=== PATIENT | male | born 1995 | race Caucasian/White ===

== ENCOUNTER 2016-07-13 15:36 | Emergency (ER) | payer OTHER ==
[2016-07-13 15:50] VITALS: BP 125/67; PULSE 70; TEMP 98.5; BMI 18.1
[2016-07-13] MEDS ORDERED: IBUPROFEN 400 MG TABLET (FP) PO ONE ×2 (16:51→16:54)
--- NOTE | 2016-07-13 16:59 | PDOC ---
History of Present Illness - General Chief Complaint: Injury Stated Complaint: RT HAND PAIN Time Seen by Provider: 07/13/16 16:02 - History of Present Illness Initial Comments: 07/13/16 16:54 CHIEF COMPLAINT: Right hand pain HISTORY OF PRESENT ILLNESS: 31-year-old male with no past medical history presents to ED with right hand pain status post fall yesterday. Patient states that he fell late last night when he was walking after tripping. He still onto the ground outside and scraped his hand. Patient states that today his hand looks a little bit more swollen and he wanted to make sure there is nothing broken. Patient denies any loss of consciousness, injury to the head, back, or any other part of body. Patient denies fever chills nausea vomiting diarrhea. No recent travel or sick contacts. PAST MEDICAL HISTORY: Denies past medical history FAMILY HISTORY: Denies SOCIAL HISTORY: Denies tobacco, alcohol, illicit drug use. SURGICAL HISTORY: Denies ALLERGIES: No known drug allergies REVIEW OF SYSTEMS General/Constitutional: Denies fever or chills. Denies weakness, weight change. Musculoskeletal: Pain and swelling to right hand. Denies joint or muscle swelling or pain. Denies neck or back pain. Skin and breasts: Denies rash or easy bruising. PHYSICAL EXAM General Appearance: Well-appearing, appropriately dressed. Respiratory/Chest: Lungs CTAB. Cardiovascular: RRR. S1, S2. Musculoskeletal/Extremities: Multiple superficial abrasions to dorsal aspect of right hand. Minimal swelling to aspect of third MCP. R hand neurovascularly intact, pulses 2+. Full range of motion to all fingers and wrist of right hand. FROM of all other extremities, normal capillary refill. Integumentary: Appropriate color, dry, warm. No cyanosis, erythema, jaundice or rash Neurologic: program facilitator II-XII intact. Fully oriented, alert. Appropriate mood/affect. Motor strength 5/5. No appreciable EOM palsy, facial droop or sensory deficit. Past History - Past Medical History Allergies/Adverse Reactions: Allergies Allergy/AdvReac Type Severity Reaction Status Date / Time No Known Allergies Allergy Verified 07/13/16 15:47 Home Medications: Ambulatory Orders Ibuprofen 800 mg PO TID PRN #21 tablet 07/13/16 Other medical history: DENIES. - Psycho/Social/Smoking Cessation Hx Suicidal Ideation: No Smoking History: Never smoked *Physical Exam - Vital Signs Last Vital Signs Temp Pulse Resp BP Pulse Ox 98.5 F 70 19 125/67 100 07/13/16 15:47 07/13/16 15:47 07/13/16 15:47 07/13/16 15:47 07/13/16 15:47 ED Treatment Course - RADIOLOGY Radiology Studies Ordered: Category Date Time Status HAND- RIGHT [RAD] Stat Radiology 07/13/16 16:46 Ordered Medical Decision Making - Medical Decision Making 07/13/16 16:57 21-year-old male with no past medical history presents to ED with right hand pain status post fall yesterday. -Ibuprofen 800 mg po -Right hand x-ray X-ray results negative for fracture, or dislocation, Ibuprofen 800 mg po rx sent to pharmacy Advised patient to take medication as prescribed and follow up with primary care provider next week. Advised patient of signs and symptoms for return to ER ; patient verbalized understanding and agrees to plan *DC/Admit/Observation/Transfer Diagnosis at time of Disposition: Hand injury Qualifiers: Encounter type: initial encounter Laterality: right Qualified Code(s): S69.91XA - Unspecified injury of right wrist, hand and finger(s), initial encounter - Discharge Dispostion Disposition: HOME Condition at time of disposition: Stable Admit: No - Prescriptions Prescriptions: Ibuprofen 800 mg PO TID PRN #21 tablet PRN Reason: Pain - Patient Instructions Printed Discharge Instructions: DI for Hand Injury, How To Perform RICE (Rest, Ice, Compress, Elevate) Additional Instructions: Please take medication as prescribed and follow up with your primary care doctor. Please wash your hand with mild soap and water to prevent infection. If your pain persists past 5 days, please follow up with orthopedics (a referral has been provided). If you experience increased swelling, redness, streaking, fever, chills, nausea, vomiting, diarrhea or any new or worsening symptoms, please return to the ER.
== END 2016-07-13 18:00 | disposition home or self-care (01) ==
LOC: JERFT 15:36
DX: S69.91XA Unspecified injury of right wrist, hand and finger(s), initial encounter (principal); W18.31XA Fall on same level due to stepping on an object, initial encounter; W18.39XA Other fall on same level, initial encounter; Y92.410 Unspecified street and highway as the place of occurrence of the external cause
CPT/HCPCS: 73130-TC-RT; 99281-25

== ENCOUNTER 2016-10-20 13:39 | Day surgery (SDC) | payer OTHER ==
[~2016-10-20 13:39] MED LIST: BUPIVACAINE HCL/PF (5 MG/ML) 30 ML VIAL IJ ONE
--- NOTE | 2016-10-20 13:50 | PDOC ---
History of Present Illness - General History Source: Patient Exam Limitations: No Limitations - History of Present Illness Initial Comments: 10/20/16 14:19 The patient is a 21 year old male with no significant past medical history, presenting to the Emergency Department with abdominal pain that started this morning. He describes the pain as at his left upper quadrant, and left lower quadrant pain, radiating to his back and wrapping around his abdomen. He admits that standing straight exacerbates the pain, and he needs to lay on his side to alleviate the pain. He admits that the pain has worsened from this morning, 8/ 10 in intensity. He admits that he ate breakfast this morning with no problem, though the pain started before breakfast. He also admits to chills but denies fever, and admits to nausea. He denies previously having similar symptoms. He has not taken any medication for the pain. The patient denies vomiting, or diarrhea. Patient denies fever, or cough. Patient denies constipation, or melena. Patient denies urinary frequency, or urgency. Patient denies sick contact. <Queta Hooks - Last Filed: 10/20/16 17:21> - General History Source: Patient Exam Limitations: No Limitations <Zoe Diallo - Last Filed: 10/22/16 07:42> - General Chief Complaint: Pain, Acute Stated Complaint: ABD PAIN Time Seen by Provider: 10/20/16 13:49 Past History <Queta Hooks - Last Filed: 10/20/16 17:21> - Past Medical History Other medical history: DENIES. - Psycho/Social/Smoking Cessation Hx Anxiety: No Suicidal Ideation: No Smoking History: Never smoked Hx Alcohol Use: No Drug/Substance Use Hx: No Substance Use Type: None <Zoe Diallo - Last Filed: 10/22/16 07:42> - Past Medical History Allergies/Adverse Reactions: Allergies Allergy/AdvReac Type Severity Reaction Status Date / Time No Known Allergies Allergy Verified 10/20/16 13:44 Home Medications: Ambulatory Orders Oxycodone HCl [Roxicodone -] 5 mg PO Q4H PRN #20 tablet MDD 6 tablets 10/21/16 Review of Systems - Review of Systems Able to Perform ROS?: Yes Comments:: 10/20/16 14:19 GENERAL/CONSTITUTIONAL: No: fever, chills, weakness, loss of appetite. HEAD, EYES, EARS, NOSE AND THROAT: No: change in vision, ear pain, discharge, sore throat, throat swelling. CARDIOVASCULAR: No: chest pain, lightheadedness, palpitations, syncope RESPIRATORY: No: cough, shortness of breath, wheezing, hemoptysis, stridor. GASTROINTESTINAL: No: vomiting, diarrhea, rectal bleeding, constipation. Present: + LUQ pain radiating to back, + LLQ pain, + nausea GENITOURINARY: No: dysuria, hematuria, frequency, urgency, flank pain. MUSCULOSKELETAL: No: neck pain, joint pain, muscle swelling or pain SKIN: No: lesions, pallor, rash or easy bruising. NEUROLOGIC: No: headache, vertigo, paresthesias, weakness ENDOCRINE: No: unexplained weight gain or loss HEMATOLOGIC/LYMPHATIC: No: anemia, easy bleeding, swelling nodes <Queta Hooks - Last Filed: 10/20/16 17:21> *Physical Exam - Vital Signs Last Vital Signs Temp Pulse Resp BP Pulse Ox 98.3 F 69 18 135/78 100 10/20/16 13:43 10/20/16 13:43 10/20/16 13:43 10/20/16 13:43 10/20/16 13:43 - Physical Exam Comments: 10/20/16 14:21 GENERAL: The patient appears in pain, in position. HEAD: Normal with no signs of trauma. EYES: PERRLA, EOMI, sclera anicteric, conjunctiva clear. ENT: Ears normal, nares patent, oropharynx clear without exudates. Moist mucous membranes. NECK: Normal range of motion, supple without lymphadenopathy, JVD, or masses. LUNGS: Breath sounds equal, clear to auscultation bilaterally. No wheezes, and no crackles. HEART: Regular rate and rhythm, normal S1 and S2 without murmur, rub or gallop. ABDOMEN: Tenderness to palpation at the LUQ and LLQ, voluntary guarding. Normoactive bowel sounds. No rebound. EXTREMITIES: Normal range of motion, no edema. No clubbing or cyanosis. No erythema, or tenderness. NEUROLOGICAL: Cranial nerves II through XII grossly intact. Normal speech. No focal neurological deficits. MUSCULOSKELETAL: Back nontender to palpation, no CVA tenderness SKIN: Warm, Dry, normal turgor, no rashes or lesions noted. <Queta Hooks - Last Filed: 10/20/16 17:21> - Vital Signs Last Vital Signs Temp Pulse Resp BP Pulse Ox 98.3 F 69 18 135/78 100 10/20/16 13:43 10/20/16 13:43 10/20/16 13:43 10/20/16 13:43 10/20/16 13:43 <Zoe Diallo - Last Filed: 10/22/16 07:42> ED Treatment Course - LABORATORY CBC & Chemistry Diagram: 10/20/16 14:18 10/20/16 14:18 - RADIOLOGY Radiograph Interpretation: 10/20/16 16:[address] As reviewed by Dr. Nola Bolton IMPRESSION: Findings consistent with early acute appendicitis. No extraluminal air or abscess formation is identified. <Queta Hooks - Last Filed: 10/20/16 17:21> - LABORATORY CBC & Chemistry Diagram: 10/21/16 07:25 10/20/16 14:18 <Zoe Diallo - Last Filed: 10/22/16 07:42> Medical Decision Making - Medical Decision Making 10/20/16 16:59 Dr. Staton was called at his office at [phone] at 4:50. A message was left on his voicemail, awaiting call back. Dr. Staton was called at his office at [phone] at 4:53. A message was left on his voicemail, awaiting call back. 10/20/16 17:21 Dr. Staton was called at his cell at [phone] at 5:21. Dr. Staton spoke to Dr. Diallo about the patient's care. <Queta Hooks - Last Filed: 10/20/16 17:21> - Medical Decision Making 10/20/16 13:50 A portion of this note was documented by scribe services under my direction. I have reviewed the details of the note, within reason, and agree with the documentation with the following case summary and management plan written by me. Nursing documentation reviewed and incorporated into medical decision making This is an otherwise healthy 21 yo M presenting to the Er with a complaint of abdominal pain Pt symptoms began this morning No fevers (+) chills Pt last ate breakfast He presents to the ER in the position reporting left sided abdominal pain No diarrhea (+) nausea, no vomiting No recent travel No changes in diet On examination: Pt in the position, pain worsens with extension of legs No abdominal distention Pt is tender through out the abdomen, worse in left side, mild right lower abd tenderness Will do labs, will do CT Will give Morphine Will give Zofran Will give pepcid 10/20/16 15:18 Laboratory Tests 10/20/16 10/20/16 14:18 14:18 WBC 18.5 H Hgb 15.7 Hct 46.7 Plt Count 204 Neutrophils % 85.9 H Lymphocytes % 8.9 Sodium 140 Potassium 3.7 Chloride 100 Carbon Dioxide 25 Anion Gap 15 BUN 17 Creatinine 0.9 Random Glucose 99 Total Amylase [address]: Early Acute Appendicitis 10/20/16 17:[address] Staton Will admit to hospitalist OR at 6:30pm <Zoe Diallo - Last Filed: 10/22/16 07:42> *DC/Admit/Observation/Transfer - Attestations Scribe Attestion: 10/20/16 14:21 Documentation prepared by Queta Hooks, acting as phlebotomist medical lab assistant for Zoe Diallo MD/DO. <Queta Hooks - Last Filed: 10/20/16 17:21> - Discharge Dispostion Admit: Yes <Zoe Diallo - Last Filed: 10/22/16 07:42> Diagnosis at time of Disposition: Acute appendicitis Qualifiers: Acute appendicitis type: unspecified acute appendicitis type Qualified Code(s) : K35.80 - Unspecified acute appendicitis - Discharge Dispostion Disposition: HOME Condition at time of disposition: Improved - Prescriptions - Referrals
[2016-10-20] MEDS ORDERED: FAMOTIDINE 20 MG/50 ML IVPB 50 ML IVPB ONE ×2 (14:05→14:15)
[2016-10-20] MEDS ORDERED: ONDANSETRON 4 MG/2 ML VIAL IVPUSH ONE (14:05)
[2016-10-20] MEDS ORDERED: SODIUM CHLORIDE 1,000 ML IV STA (14:05)
[2016-10-20] MEDS ORDERED: ONDANSETRON 4 MG/2 ML VIAL ONE ×2 (14:15→20:09)
[2016-10-20] MEDS ORDERED: morphine CARPU-JECT 4 MG/1 ML DISP.SYRIN IVPUSH ONE (14:16)
[2016-10-20 14:38] LABS: BASOPHIL 0.1 % (0-2.0); EOSINOPHIL 0.3 % (0-4.5); MCH 28.6 pg (25.7-33.7); MCHC 33.6 g/dl (32.0-35.9); MEAN CELL VOLUME 85.3 fl (80-96); MEAN PLT VOLUME 9.1 fl (7.5-11.1); NEUTROPHILS 85.9 % (42.8-82.8); PLATELET COUNT 204 K/MM3 (134-434); RDW 12.8 % (11.9-15.9); WHITE BLOOD COUNT 18.5 K/mm3 (4.0-10.0)
[2016-10-20] MEDS ORDERED: morphine CARPU-JECT 4 MG/1 ML DISP.SYRIN ONE (14:39)
[2016-10-20 15:05] LABS: ALBUMIN 4.5 g/dl (3.4-5.0); AMYLASE 47 U/L (25-115); ANION GAP 15 (8-16); BILIRUBIN,TOTAL 0.7 mg/dL (0.2-1.0); CALCIUM 9.2 mg/dL (8.5-10.1); CO2 25 mmol/L (21-32); COCKROFT - GAULT 106.46; CREATININE 0.9 mg/dL (0.7-1.3); GLUCOSE,RANDOM 99 mg/dL (74-106); SGOT/AST 16 U/L (15-37); SGPT/ALT 21 U/L (12-78); TOT PROT 7.8 g/dl (6.4-8.2)
[2016-10-20 15:06] LABS: ALK PHOS 76 U/L (45-117)
[2016-10-20 16:09] LABS: URINE APPEARANCE CLOUDY; URINE BILIRUBIN NEGATIVE (NEGATIVE); URINE BLOOD NEGATIVE (NEGATIVE); URINE COLOR STRAW; URINE GLUCOSE (UA) NEGATIVE (NEGATIVE); URINE KETONE 1+ (NEGATIVE); URINE LEUK ESTERASE NEGATIVE (NEGATIVE); URINE NITRITE NEGATIVE (NEGATIVE); URINE PROTEIN NEGATIVE (NEGATIVE); URINE UROBILINOGEN NEGATIVE E.U./dl (0.2-1.0)
[2016-10-20] MEDS ORDERED: PIPERACILLIN/TAZOB 3.375 GM/50 ML PRE-DOCKED IVPB ONE (16:48)
[2016-10-20] MEDS ORDERED: PIPERACILLIN/TAZOB 3.375 GM 50 ML IVPB ONE (16:52)
--- NOTE | 2016-10-20 17:59 | HP ---
CHIEF COMPLAINT: This is a 21-year-old man who presents with abdominal pain times one day. PCP: None HISTORY OF PRESENT ILLNESS: Patient is a healthy 21-year-old man who presents complaining of onset this morning of initially left-sided and then diffuse abdominal discomfort. As the day progressed, the pain has now shifted to the right mid abdomen. There is nausea but no vomiting. He felt hot but did not have a fever. He is urinating normally. There is no change in his bowel movements. ER course was notable for: (1) CT was performed demonstrating thickening of the appendix up to 12 mm, with periappendiceal inflammation consistent with early appendicitis (2) patient was treated with IV Zosyn times one dose (3) patient was given 1 L of normal saline along with Zofran for nausea Recent Travel: Denies PAST MEDICAL HISTORY: No significant past medical history. No diabetes, no asthma, no hypertension. PAST SURGICAL HISTORY: None Social History: Smoking: Nonsmoker Alcohol: Drinks alcohol at parties or weddings, approximately once per month Drugs: No recreational drug use Family History: Negative Allergies No Known Allergies Allergy (Verified 10/20/16 13:44) HOME MEDICATIONS: Home Medications Medication Instructions Recorded NK [No Known Home Medication] 10/20/16 REVIEW OF SYSTEMS CONSTITUTIONAL: Present: [place] hot at work today Absent: fever, chills, diaphoresis, generalized weakness, malaise, loss of appetite, weight change HEENT: Absent: rhinorrhea, nasal congestion, throat pain, throat swelling, difficulty swallowing, mouth swelling, ear pain, eye pain, visual changes CARDIOVASCULAR: Absent: chest pain, syncope, palpitations, irregular heart rate, lightheadedness , peripheral edema RESPIRATORY: Absent: cough, shortness of breath, dyspnea with exertion, orthopnea, wheezing, stridor, hemoptysis GASTROINTESTINAL: Present: Abdominal pain, currently right-sided, nausea Absent: abdominal distension, vomiting, diarrhea, constipation, melena, hematochezia GENITOURINARY: Absent: dysuria, frequency, urgency, hesitancy, hematuria, flank pain, genital pain MUSCULOSKELETAL: Absent: myalgia, arthralgia, joint swelling, back pain, neck pain SKIN: Absent: rash, itching, pallor HEMATOLOGIC/IMMUNOLOGIC: Absent: easy bleeding, easy bruising, lymphadenopathy, frequent infections ENDOCRINE: Absent: unexplained weight gain, unexplained weight loss, heat intolerance, cold intolerance NEUROLOGIC: Absent: headache, focal weakness or paresthesias, dizziness, unsteady gait, seizure, mental status changes, bladder or bowel incontinence PSYCHIATRIC: Absent: anxiety, depression, suicidal or homicidal ideation, hallucinations. PHYSICAL EXAMINATION Vital Signs - 24 hr 10/20/16 13:43 Temperature 98.3 F Pulse Rate 69 Respiratory 18 Rate Blood Pressure 135/78 O2 Sat by Pulse 100 Oximetry (%) GENERAL: Awake, alert, and fully oriented, in no acute distress. Patient appears well. HEAD: Normal with no signs of trauma. EYES: Pupils equal, round and reactive to light, extraocular movements intact, sclera anicteric, conjunctiva clear. No lid lag. EARS, NOSE, THROAT: Ears normal, nares patent, oropharynx clear without exudates. Moist mucous membranes. NECK: Normal range of motion, supple without lymphadenopathy, JVD, or masses. LUNGS: Breath sounds equal, clear to auscultation bilaterally. No wheezes, and no crackles. No accessory muscle use. HEART: Regular rate and rhythm, normal S1 and S2 without murmur, rub or gallop. ABDOMEN: Soft, positive focal tenderness in the right mid and lower abdomen, not distended, normoactive bowel sounds, negative Harris's, no guarding, no rebound, no masses. No hepatomegaly or splenomegaly. MUSCULOSKELETAL: Normal range of motion at all joints. No bony deformities or tenderness. No CVA tenderness. UPPER EXTREMITIES: 2+ pulses, warm, well-perfused. No cyanosis. No clubbing. No peripheral edema. LOWER EXTREMITIES: 2+ pulses, warm, well-perfused. No calf tenderness. No peripheral edema. NEUROLOGICAL: Cranial nerves II-XII intact. Normal speech. Normal gait. PSYCHIATRIC: Cooperative. Good eye contact. Appropriate mood and affect. SKIN: Warm, dry, normal turgor, no rashes or lesions noted, normal capillary refill. Laboratory Results - last 24 hr 10/20/16 10/20/16 10/20/16 14:18 14:18 15:53 WBC 18.5 H RBC 5.47 Hgb 15.7 Hct 46.7 MCV 85.3 MCHC 33.6 RDW 12.8 Plt Count 204 MPV 9.1 Neutrophils % 85.9 H Lymphocytes % 8.9 Monocytes % 4.8 Eosinophils % 0.3 Basophils % 0.1 Sodium 140 Potassium 3.7 Chloride 100 Carbon Dioxide 25 Anion Gap 15 BUN 17 Creatinine 0.9 Creat Clearance w eGFR > 60 Random Glucose 99 Calcium 9.2 Total Bilirubin 0.7 AST 16 ALT 21 Alkaline Phosphatase 76 Total Protein 7.8 Albumin 4.5 Total Amylase 47 Lipase 116 Urine Color Straw Urine Appearance Cloudy Urine pH 8.0 Urine Protein Negative Urine Glucose (UA) Negative Urine Ketones 1+ H Urine Blood Negative Urine Nitrite Negative Urine Bilirubin Negative Urine Urobilinogen Negative Ur Leukocyte Esterase Negative ASSESSMENT/PLAN: Healthy 21-year-old man presents with onset today of abdominal pain. Pain was initially to the left and then somewhat diffuse. Currently the pain is on the right side. The patient has focal tenderness on exam in the right mid and lower abdomen. CT scan is notable for swelling of the appendix with periappendiceal inflammation. It is consistent with appendicitis. White blood cell count is 18,000. IV hydration has been given. IV Zosyn has been given. Surgical consult has been called, Dr. Staton will take the patient to the OR today at 6:30 PM. Problem List - Problem (1) Acute appendicitis Code(s): K35.80 - UNSPECIFIED ACUTE APPENDICITIS Qualifiers: Acute appendicitis type: unspecified acute appendicitis type Qualified Code(s): K35.80 - Unspecified acute appendicitis Visit type - Emergency Visit Emergency Visit: Yes Care time: The patient presented to the Emergency Department on the above date and was hospitalized for further evaluation of their emergent condition. - New Patient This patient is new to me today: Yes Date on this admission: 10/20/16 - Critical Care Critical Care patient: No
[2016-10-20] MEDS ORDERED: SODIUM CHLORIDE 1,000 ML IV SCH (18:00)
[2016-10-20] MEDS ORDERED: PROPOFOL 20 ML ONE (18:19)
[2016-10-20] MEDS ORDERED: SUCCINYLCHOLINE CHLORIDE 200 MG/10 ML VIAL ONE (18:19)
[2016-10-20] MEDS ORDERED: ROCURONIUM BROMIDE 50 MG/5 ML VIAL ONE (18:19)
[2016-10-20] MEDS ORDERED: MIDAZOLAM HCL 2 MG/2 ML SINGLE DOSE VIAL ONE (18:22)
[2016-10-20] MEDS ORDERED: LIDOCAINE HCL/PF 2% SDV 5ML VIAL ONE (18:23)
[2016-10-20] MEDS ORDERED: ACETAMINOPHEN INJECTION 100 ML IVPB ONE (18:26)
[2016-10-20 19:02] VITALS: BMI 18.6
--- NOTE | 2016-10-20 19:34 | CONSULT ---
- Consultation REQUESTING PROVIDER: Mony Diallo CONSULT REQUEST: We have been asked to surgically evaluate this patient for evaluation and management of acute appendicitis found on w/u in the ER PCP:Joel Mendiola HISTORY OF PRESENT ILLNESS:Patient presented w/ abdominal pain now localized to the RLQ; unrelenting and sharp; worse w/ movement; better when laying still; no GI/ c/o o/w; some associated nausea; no vomiting; it started earlier today; w/ u in the ER is c/w acute appendicitis. PMHx: none PSHx: none Home Medications Medication Instructions Recorded NK [No Known Home Medication] 10/20/16 Allergies Allergy/AdvReac Type Severity Reaction Status Date / Time No Known Allergies Allergy Verified 10/20/16 13:44 REVIEW OF SYSTEMS: CONSTITUTIONAL: Absent: fever, chills, diaphoresis, generalized weakness, malaise, loss of appetite, weight change CARDIOVASCULAR: Absent: chest pain, syncope, palpitations, irregular heart rate, lightheadedness , peripheral edema RESPIRATORY: Absent: cough, shortness of breath, dyspnea with exertion, wheezing, stridor, hemoptysis GASTROINTESTINAL: Absent: abdominal pain, abdominal distension, nausea, vomiting, diarrhea, constipation, melena, hematochezia GENITOURINARY: Absent: dysuria, frequency, urgency, hesitancy, hematuria, flank pain, genital pain MUSCULOSKELETAL: Absent: myalgia, arthralgia, joint swelling, back pain, neck pain SKIN: Absent: rash, itching, pallor HEMATOLOGIC/IMMUNOLOGIC: Absent: easy bleeding, easy bruising, lymphadenopathy NEUROLOGIC: Absent: headache, focal weakness, paresthesias, dizziness, unsteady gait, seizure, mental status changes, bladder or bowel incontinence PSYCHIATRIC: Absent: anxiety, depression, suicidal or homicidal ideation, hallucinations. PHYSICAL EXAM: GENERAL: Awake, alert, and fully oriented, in no acute distress. ABDOMEN: Soft, tenderRLQ w/guarding; no rebound; psoas and obturator and Rovsings signs are present not distended, normoactive bowel sounds,, no masses. No organomegaly. No hernias MUSCULOSKELETAL: Normal ROM at all joints. No bony deformities or tenderness. No CVA tenderness. UPPER EXTREMITIES: 2+ pulses, warm, well-perfused. No cyanosis. Cap refill <2 seconds. No peripheral edema. LOWER EXTREMITIES: 2+ pulses, warm, well-perfused. No calf tenderness. No peripheral edema. NEUROLOGICAL: Normal speech, gait not observed. PSYCH: Cooperative. Good eye contact. Appropriate mood and affect. SKIN: Warm, dry, normal turgor, no rashes or lesions noted. Vital Signs Temperature 99.3 F 10/20/16 18:57 Pulse Rate 103 H 10/20/16 18:57 Respiratory Rate 16 10/20/16 18:57 Blood Pressure 115/73 10/20/16 18:57 O2 Sat by Pulse Oximetry (%) 100 10/20/16 18:57 Lab Results WBC 18.5 K/mm3 (4.0-10.0) H 10/20/16 14:18 RBC 5.47 M/mm3 (4.00-5.60) 10/20/16 14:18 Hgb 15.7 GM/dL (11.7-16.9) 10/20/16 14:18 Hct 46.7 % (35.4-49) 10/20/16 14:18 MCV 85.3 fl (80-96) 10/20/16 14:18 MCHC 33.6 g/dl (32.0-35.9) 10/20/16 14:18 RDW 12.8 % (11.9-15.9) 10/20/16 14:18 Plt Count 204 K/MM3 (134-434) 10/20/16 14:18 Sodium 140 mmol/L (136-145) 10/20/16 14:18 Potassium 3.7 mmol/L (3.5-5.1) 10/20/16 14:18 Chloride 100 mmol/L (98-107) 10/20/16 14:18 Carbon Dioxide 25 mmol/L (21-32) 10/20/16 14:18 Anion Gap 15 (8-16) 10/20/16 14:18 BUN 17 mg/dL (7-18) 10/20/16 14:18 Creatinine 0.9 mg/dL (0.7-1.3) 10/20/16 14:18 Random Glucose 99 mg/dL (74-106) 10/20/16 14:18 Calcium 9.2 mg/dL (8.5-10.1) 10/20/16 14:18 CT scan a/p reviewed. IMP: acute appendicitis Plan: lap appendectomy possible open; r/b/t alternatives d/w the patient and his father at his request; informed consent obtained. Abe Staton MD FACS Visit type - Case Type Case Type: ED Admission - Emergency Emergency Visit: Yes ED Registration Date: 10/20/16 Care time: The patient presented to the Emergency Department on the above date and was hospitalized for further evaluation of their emergent condition. - New patient This patient is new to me today: Yes Date on this admission: 10/20/16 - Critical Care Critical Care patient: No
[2016-10-20] MEDS ORDERED: GLYCOPYRROLATE 0.2 MG/1 ML VIAL ONE (20:09)
[2016-10-20] MEDS ORDERED: NEOSTIGMINE METHYLSULFATE 0.5 MG/ML - 10 ML MDV ONE (20:09)
[2016-10-20] MEDS ORDERED: KETOROLAC TROMETHAMINE 30 MG/1 ML VIAL ONE (20:11)
[2016-10-20] MEDS ORDERED: BUPIVACAINE HCL/PF (5 MG/ML) 30 ML VIAL IJ ONE (20:35)
--- NOTE | 2016-10-20 20:44 | OP ---
Operative Note - Note: Operative Date: 10/20/16 Pre-Operative Diagnosis: acute appendicitis Operation: laproscopic appendectomy Post-Operative Diagnosis: Same as Pre-op Surgeon: Abe Staton Stage Settings Painter: Edyta Snow Anesthesia: General Specimens Removed: appendix Estimated Blood Loss (mls): 10 Drains & Tubes with Location: none
[2016-10-20] MEDS ORDERED: ACETAMINOPHEN 1000 MG/100 ML VIAL (NON FORMULARY) IVPB ONE (20:51)
[2016-10-20] MEDS ORDERED: oxyCODONE HCL 5 MG TABLET PO PRN ×2 (20:53)
[2016-10-20] MEDS ORDERED: KETOROLAC TROMETHAMINE 30 MG/1 ML VIAL IVPUSH PRN (20:53)
[2016-10-20] MEDS ORDERED: ONDANSETRON 4 MG/2 ML VIAL IVPUSH PRN (20:54)
[2016-10-20] MEDS ORDERED: LACTATED RINGERS SOLUTION 1,000 ML IV SCH (21:00)
[2016-10-20] MEDS ORDERED: PROMETHAZINE HCL 25 MG/1 ML VIAL IVPUSH PRN (21:21)
[2016-10-20] MEDS: HEPARIN NA (PORCINE) 5,000 UNITS/ML 1ML VIAL SQ SCH (22:36)
[2016-10-21] MEDS ORDERED: ACETAMINOPHEN 325 MG TABLET (FP) PO PRN (03:00)
[2016-10-21 08:35] LABS: BASOPHIL 0.1 % (0-2.0); EOSINOPHIL 0.2 % (0-4.5); MCHC 34.1 g/dl (32.0-35.9); MEAN CELL VOLUME 85.2 fl (80-96); MEAN PLT VOLUME 9.3 fl (7.5-11.1); PLATELET COUNT 175 K/MM3 (134-434); RDW 12.6 % (11.9-15.9); WHITE BLOOD COUNT 12.5 K/mm3 (4.0-10.0)
[2016-10-21] MEDS: HEPARIN NA (PORCINE) 5,000 UNITS/ML 1ML VIAL SQ SCH (09:43)
--- NOTE | 2016-10-21 10:24 | PN ---
Progress Note (short form) - Note Progress Note: Attending Surgeon POD #1 s/p lap appendectomy No c/o; tolerated diet VSS AF abdomen-soft/flat/port site dressings c/d/i; minimally tender; o/w negative. WBC 12.5 IMP: doing well post op PLAN: d/c to opd f/u w/o 10/29/16. Abe Staton MD FACS
[2016-10-21 14:28] VITALS: BP 100/55; PULSE 74; TEMP 99.3
--- NOTE | 2016-10-21 16:29 | PN ---
Physical Exam: SUBJECTIVE: Patient seen and examined. He complains of right testicular swelling and pain. He says he has had similar symptoms in the past. OBJECTIVE: Vital Signs Period Temp Pulse Resp BP Sys/Arellano Pulse Ox Last 24 Hr 98.0 F-99.5 F 74-105 16-20 98-126/53-86 96-100 GENERAL: The patient is awake, alert, and fully oriented, in no acute distress. LUNGS: Breath sounds equal, clear to auscultation bilaterally, no wheezes, no crackles, no accessory muscle use. HEART: Regular rate and rhythm, S1, S2 without murmur, rub or gallop. ABDOMEN: Soft, nontender, nondistended, normoactive bowel sounds, no guarding, no rebound, no hepatosplenomegaly, no masses. EXTREMITIES: 2+ pulses, warm, well-perfused, no edema. GENITOURINARY: No scrotal edema or erythema, right testicle tender Laboratory Results - last 24 hr 10/21/16 07:25 WBC 12.5 H D RBC 4.71 Hgb 13.7 D Hct 40.1 MCV 85.2 MCHC 34.1 RDW 12.6 Plt Count 175 MPV 9.3 Neutrophils % 79.0 Lymphocytes % 11.8 D Monocytes % 8.9 D Eosinophils % 0.2 Basophils % 0.1 Active Medications Generic Name Dose Route Start Last Admin Trade Name Freq PRN Reason Stop Dose Admin Acetaminophen 650 mg 10/21/16 03:00 10/21/16 16:11 Tylenol - PO 650 mg Q6H PRN Administration FEVER OR PAIN Heparin Sodium (Porcine) 5,000 unit 10/20/16 22:00 10/21/16 09:43 Heparin - SQ 5,000 unit BID YVETTE Administration Lactated Ringer's 1,000 mls @ 125 mls/hr 10/20/16 21:00 10/20/16 22:37 Lactated Ringers Solution IV 125 mls/hr ASDIR YVETTE Administration Ketorolac Tromethamine 30 mg 10/20/16 20:53 Toradol Injection - IVPUSH 10/25/16 20:52 Q6H PRN PAIN Ondansetron HCl 4 mg 10/20/16 20:54 Zofran Injection IVPUSH Q6H PRN NAUSEA AND/OR VOMITING Oxycodone HCl 5 mg 10/20/16 20:53 Roxicodone - PO Q4H PRN PAIN LEVEL 1-5 Oxycodone HCl 10 mg 10/20/16 20:53 Roxicodone - PO Q4H PRN PAIN LEVEL 6-10 ASSESSMENT/PLAN: This is a 21-year-old man with no past medical history who presented to the ER with abdominal pain and found to have acute appendicitis. 1. Sepsis with tachycardia and leukocytosis secondary to acute appendicitis - Afebrile, leukocytosis improving, tachycardia improved - s/p laparoscopic appendectomy yesterday 2. Right testicular pain - Scrotal US
--- NOTE | 2016-10-21 17:58 | DS ---
Physical Exam: SUBJECTIVE: Patient seen and examined OBJECTIVE: Vital Signs Period Temp Pulse Resp BP Sys/Arellano Pulse Ox Last 24 Hr 98.0 F-99.5 F 74-105 16-20 98-126/53-86 96-100 PHYSICAL EXAM GENERAL: The patient is awake, alert, and fully oriented, in no acute distress. LUNGS: Breath sounds equal, clear to auscultation bilaterally, no wheezes, no crackles, no accessory muscle use. HEART: Regular rate and rhythm, S1, S2 without murmur, rub or gallop. ABDOMEN: Soft, nontender, nondistended, normoactive bowel sounds, no guarding, no rebound, no hepatosplenomegaly, no masses. Surgical incisions clean. EXTREMITIES: 2+ pulses, warm, well-perfused, no edema. GENITOURINARY: No scrotal edema or erythema, right testicle tender LABS Laboratory Results - last 24 hr 10/21/16 07:25 WBC 12.5 H D RBC 4.71 Hgb 13.7 D Hct 40.1 MCV 85.2 MCHC 34.1 RDW 12.6 Plt Count 175 MPV 9.3 Neutrophils % 79.0 Lymphocytes % 11.8 D Monocytes % 8.9 D Eosinophils % 0.2 Basophils % 0.1 HOSPITAL COURSE: Date of Admission:10/20/16 Date of Discharge: 10/21/16 This is a 21-year-old man with no past medical history who presented to the ER on October 20 with abdominal pain which started that morning. Initially the pain was on the left side but became diffuse. When he presented to the ER, the pain was on the right side. He felt hot and nauseous. In the ER, he was afebrile but found to have WBC 18.5. He also developed tachycardia. CT showed a 12 mm appendix with intraluminal fluid, mild wall enhancement and minimal stranding of the periappendiceal fat. He was treated with Zosyn, IV fluid and Zofran. He was admitted and seen by Dr. Staton. He underwent laparoscopic appendectomy on October 20. WBC improved to 12.5, tachycardia improved, and he remained afebrile. He complained of swelling and pain of his right testicle. He reported having this several times in the past for which he had seen a urologist. On exam, there was no edema or erythema of the scrotum, and the right testicle was tender. Scrotal US showed normal testicles, large right scrotal sac complex collection/hydrocele. He is being discharged home on October 21. He is advised to follow-up with his urologist this week. He will follow-up with Dr. Staton on October 29. He is advised to avoid heavy lifting and strenuous activity, and to return to the ER for fever, chills, abdominal pain, nausea/vomiting, worsening testicular pain. Minutes to complete discharge: 30 Discharge Summary Reason For Visit: APPENDICITIS Current Active Problems Acute appendicitis (Acute) Condition: Improved - Instructions Diet, Activity, Other Instructions: You may resume a regular diet. No heavy lifting or strenuous activity. Please follow up with Dr. Staton in the office on October 29. Please call your urologist's office tomorrow to schedule an appointment this week. Return to the ER if you develop fever, chills, abdominal pain, nausea/vomiting, worsening testicular pain. Referrals: STAFF,NOT ON [Primary Care Provider] - Disposition: HOME - Home Medications Comprehensive Discharge Medication List: Ambulatory Orders Oxycodone HCl [Roxicodone -] 5 mg PO Q4H PRN #20 tablet MDD 6 tablets 10/21/16 Problem List - Problems (1) Right hydrocele Code(s): N43.3 - HYDROCELE, UNSPECIFIED (2) Scrotal pain Code(s): N50.82 - SCROTAL PAIN (3) Sepsis Code(s): A41.9 - SEPSIS, UNSPECIFIED ORGANISM (4) Acute appendicitis Code(s): K35.80 - UNSPECIFIED ACUTE APPENDICITIS Qualifiers: Acute appendicitis type: unspecified acute appendicitis type Qualified Code(s): K35.80 - Unspecified acute appendicitis This patient is new to me today: Yes Date on this admission: 10/21/16 Emergency Visit: Yes ED Registration Date: 10/20/16 Care time: The patient presented to the Emergency Department on the above date and was hospitalized for further evaluation of their emergent condition. Critical Care patient: No - Discharge Referral Referred to [facility] Med [facility].: No
--- NOTE | 2016-10-22 08:02 | SURG ---
Surgery Floorhand Note Floorhand: Edyta Snow PA-C Date of Service: 10/19/16 Diagnosis: acute appendicitis Procedure: laproscopic appendectomy I was present for the entirety of the operative procedure. For further detail, please refer to operative report. Visit type - Case Type Case Type: ED Admission - Emergency Emergency Visit: Yes ED Registration Date: 10/20/16 Care time: The patient presented to the Emergency Department on the above date and was hospitalized for further evaluation of their emergent condition. - New patient This patient is new to me today: Yes Date on this admission: 10/22/16 - Critical Care Critical Care patient: No
--- NOTE | 2016-10-22 09:26 | OP ---
DATE OF OPERATION: 10/20/2016 PREOPERATIVE DIAGNOSIS: Acute appendicitis. POSTOPERATIVE DIAGNOSIS: Acute appendicitis. PROCEDURE: Laparoscopic appendectomy. SURGEON: Abe Staton MD SCRUB NURSE: MARIETTA Pillai ANESTHESIA: General. OPERATIVE FINDINGS: Acute appendicitis. The rest of the findings were unremarkable. DESCRIPTION OF PROCEDURE: The patient was placed on the operating room in supine position, and after the induction of general anesthesia and placement of sequential compression devices on the patient's lower extremities, his abdomen was prepped with ChloraPrep and draped in sterile fashion. A time-out was taken and pneumoperitoneum established above the umbilicus using a Veress needle. Once 15 mmHg of pressure was achieved, a 5-mm port was placed. An additional suprapubic 12-mm and a left lower quadrant 5-mm port was placed and laparoscopy carried out and the previously noted findings were observed. The appendix was grasped and placed on traction and the mesoappendix identified and divided sequentially using the LigaSure device. The base of the appendix was identified at the confluence of the tinea, and once cleared of the mesentery, an Endo PATEL 45-mm blue load stapler was fired across the base of the appendix. The appendix was then placed in an EndoCatch and brought out through the suprapubic port site. Pneumoperitoneum was reestablished, and the appendiceal stump and mesoappendix showed no evidence of bleeding with an intact staple line. Next, the supine position and left lower quadrant ports were removed under laparoscopic vision without evidence of bleeding from the port sites and then the suprapubic port removed under laparoscopic vision as well without evidence of bleeding. All sites were infiltrated with 0.5% Marcaine after the pneumoperitoneum was evacuated, and the defect at the fascia and the suprapubic port site was closed with a single 0 Vicryl [id number] suture. The skin incisions were closed with 4-0 Biosyn followed by Steri-Strips and Band-Aid dressings. The patient was then aroused from general anesthesia and transferred to the post anesthesia care unit in stable condition awake and alert. ESTIMATED BLOOD LOSS: 10 mL. REPLACEMENT: Crystalloid. DRAINS: None. SPECIMEN: Appendix to pathology. I, Abe Staton, was physically present in the operating room from the time the patient was placed on the operating room table until he was transferred to the post anesthesia care unit in [employer]. MD KARLENE Gonzalez/[id number]
--- NOTE | 2016-10-23 14:35 | PATH ---
Surgical Pathology Report Patient Name: NISHANT JEWELL [facility]. Rec. #: [id number] /Age/Gender: 1995 (Age: 21) / M Account: <[id number]> Location: EMERGENCY ROOM Taken: 10/20/2016 Received: 10/22/2016 Reported: 10/23/2016 Physicians: Abe Staton MD Specimen(s) Received APPENDIX Clinical History Appendicitis Final Diagnosis APPENDIX, APPENDECTOMY: ACUTE APPENDICITIS AND PERIAPPENDICITIS. Electronically Signed Vitor Bains M.D. Gross Description Received in formalin, labeled "appendix," is a 4 cm. in length vermiform appendix with a stapled margin of resection and moderate attached fat. The serosa is carmichael-garcía and smooth. Sectioning reveals a focally hemorrhagic lumen. The wall of the appendix averages 0.2 cm. in thickness. Blue Line Operator sections are submitted in one cassette. /10/22/2016 saudi/10/22/2016
== END 2016-10-21 18:35 | disposition home or self-care (01) ==
LOC: JER 13:39 → JASUSAT 17:52 → UNDOADMIN 17:52 → JERBED 17:52 → UNDOADMIN 18:01 → JERBED 18:01 → J6S 22:34 → JERBED 22:34 → J6S 10-21 00:11 → JERBED 10-21 00:20 → JASUSAT 10-21 18:35 → UNDODISIN 10-21 18:35
PROVIDERS: ATTEND Internal Medicine
PROC: 0DTJ4ZZ Resection of Appendix, Percutaneous Endoscopic Approach (ICD-10-PCS; principal; 2016-10-20 19:00)
DX: K35.80 Unspecified acute appendicitis (principal)
CPT/HCPCS: 36415; 74177-TC; 76870-TC; 80053; 81003; 82150; 83690; 85025; 87086; 94010; 94760; 99285-25; J1644